=== PATIENT | male | born 1990 | race Caucasian/White ===

== ENCOUNTER 2019-02-16 15:44 | Emergency (ER) | payer OTHER, SELFPAY ==
[2019-02-16 16:43] LABS: Urine Blood NEGATIVE (NEG); Urine Glucose NEGATIVE (NEG); Urine Protein NEGATIVE (NEG); Urine Specific Gravity <1.005 (1.005-1.030)
[2019-02-16] MEDS ORDERED: ZIPRASIDONE MESYLA 20 MG/VIAL IM ONE (16:47)
[2019-02-16] MEDS ORDERED: WATER FOR INJ,STERILE 10 ML ONE (16:48)
[2019-02-16 16:50] LABS: Absolute Lymphocytes (CBC) 1.2 K/uL (0.7-4.9); Basophils % 0.5 % (0-1.3); Lymphocytes % 13.5 % (15.3-44.8); MPV 9.7 fL (7.6-11.3); RBC Red Blood Cell Count 5.31 M/uL (4.33-5.43)
[2019-02-16 16:52] LABS: Protime INR 1.12
[2019-02-16 16:56] LABS: Barbiturates NEGATIVE (NEGATIVE); Benzodiazepines NEGATIVE (NEGATIVE); Cocaine NEGATIVE (NEGATIVE); METHAMPHETAM NEGATIVE (NEGATIVE); Methadone NEGATIVE (NEGATIVE); Opiates NEGATIVE (NEGATIVE); Phencyclidine NEGATIVE (NEGATIVE); THC Cannibis NEGATIVE (NEGATIVE)
[2019-02-16 17:11] LABS: ALT/SGPT 49 U/L (12-78); AST/SGOT 55 U/L (15-37); Albumin 4.8 g/dL (3.4-5.0); Alkaline Phosphatase 90 U/L (45-117); BUN Blood Urea Nitrogen 9 mg/dL (7-18); Bicarbonate 31 mmol/L (21-32); Bilirubin Direct 0.1 mg/dL (0-0.2); Bilirubin Total 0.5 mg/dL (0.2-1.0); Glucose Level 79 mg/dL (74-106); Potassium 3.9 mmol/L (3.5-5.1); Protein, Total 8.8 g/dL (6.4-8.2); Sodium Level 138 mmol/L (136-145)
[2019-02-16 17:17] LABS: Lithium 0.6 mmol/L (0.6-1.2); Salicylates Level 8.5 mg/dL (2.8-20)
--- NOTE | 2019-02-16 22:17 | ER ---
Nurse's Notes [facility] Name: Shayan Villa Age: 28 yrs Sex: Male : 1990 Arrival Date: 02/16/2019 Time: 15:46 Bed 25 Private MD: Diagnosis: Schizophrenia;Auditory hallucinations Presentation: 02/16 16:00 Presenting complaint: Patient states: I have schizophrenia and just got out of [address] yesterday. I have not been able to sleep for the last week and I am hearing voices that are telling my I will be in eternal pain and suffering, that lead me to want to hurt myself but I never would, pt denies having plan. States he has a bad SINGH and feels like it is going to explode. Transition of care: patient was not received from another setting of care. Onset of symptoms was February 16, 2019. Risk Assessment: Do you want to hurt yourself or someone else? Patient reports no desire to harm self or others. Initial Sepsis Screen: Does the patient meet any 2 criteria? No. Patient's initial sepsis screen is negative. Does the patient have a suspected source of infection? No. Patient's initial sepsis screen is negative. Care prior to arrival: None. 16:00 Method Of Arrival: Ambulatory la1 16:00 Acuity: ABBI 2 la1 Historical: - Allergies: 16:02 No Known Allergies; la1 - PMHx: 16:02 Schizophrenia; la1 - Immunization history:: Adult Immunizations up to date. - Social history:: Smoking status: Patient/guardian denies using tobacco. - Ebola Screening: : No symptoms or risks identified at this time. Screenin:20 Abuse screen: Denies threats or abuse. Denies injuries from another. Nutritional mg2 screening: No deficits noted. Tuberculosis screening: No symptoms or risk factors identified. Fall Risk IV access (20 points). Assessment: 16:05 General: Appears in no apparent distress. comfortable, Behavior is calm, cooperative. mg2 16:05 Pain: Complains of pain in head Pain does not radiate. Pain currently is 5 out of 10 on mg2 a pain scale. Quality of pain is described as aching, Pain began gradually, Is intermittent. Neuro: Level of Consciousness is awake, alert, obeys commands, Oriented to person, place, time, situation, Reports headache. Cardiovascular: Capillary refill < 3 seconds Patient's skin is warm and dry. Respiratory: Airway is patent Respiratory effort is even, unlabored, Respiratory pattern is regular, symmetrical. GI: No signs and/or symptoms were reported involving the gastrointestinal system. : No signs and/or symptoms were reported regarding the genitourinary system. EENT: No signs and/or symptoms were reported regarding the EENT system. Derm: Skin is intact, is healthy with good turgor, Skin is pink, warm \T\ dry. normal. Musculoskeletal: Circulation, motion, and sensation intact. Capillary refill < 3 seconds. 17:00 Reassessment: Patient appears in no apparent distress at this time. sitter at bedside. [facility] [place] 18:00 Reassessment: Patient appears in no apparent distress at this time. Patient and/or mg2 family updated on plan of care and expected duration. Pain level reassessed. Patient is alert, oriented x 3, equal unlabored respirations, skin warm/dry/pink. 19:10 Reassessment: Patient appears in no apparent distress at this time. Patient and/or mg2 family updated on plan of care and expected duration. Pain level reassessed. Patient is alert, oriented x 3, equal unlabored respirations, skin warm/dry/pink. 20:30 Reassessment: Patient appears in no apparent distress at this time. sitter at bedside. [facility] [place] 22:43 Reassessment: nurse to nurse report called to JHOANA Garcia from [place] [id number] facility. patient informed about the plan and agreed to it. patient's belonging gave back to the him by the security. 23:54 Reassessment: Patient is alert, oriented x 3, equal unlabored respirations, skin bb warm/dry/pink. EMS at bedside for transport to [facility]. Pt is cooperative, family at bedside, sitter with patient. Psych: 16:10 Objective: Patient is cooperative, Speech is normal, Affect is appropriate, patient mg2 states hearing voices telling him that they will kill him. 17:19 Subjective:. Interventions: Removed personal items and placed in bag. Patient placed [place] [facility] [place] gown. Urine collected and sent for urine drug test. Belonging list filled out. Safety Checks: Personal items have been removed. Door is open. Visitors are present. Commitment: Patient will be a voluntary commitment. Vital Signs: 16:02 BP 117 / 88; Pulse 121; Resp 16; Temp 98.7; Pulse Ox 100% on R/A; Weight 63.5 kg; la1 Height 5 ft. 10 in. (177.80 cm); 20:00 BP 96 / 81; Pulse 97; Resp 16; Temp 97.6; Pulse Ox 99% ; vo1 22:59 BP 116 / 77; Pulse 94; Resp 16; Temp 97.7; Pulse Ox 100% ; vo1 16:02 Body Mass Index 20.09 (63.50 kg, 177.80 cm) la1 ED Course: 08:15 Safety checks: Items removed: yes. Door open/sign placed on door: yes. Family/friend vo1 present: no. Sitter present: Yes. 14:00 Safety checks: Items removed: yes. Door open/sign placed on door: yes. Family/friend mh5 present: no. Sitter present: Yes. 15:46 Patient arrived in ED. as 16:01 Triage completed. la1 16:02 Arm band placed on left wrist. la1 16:04 Barrie Green, JHOANA is Primary Nurse. mg2 16:15 Mary Patel FNP-C is PHCP. snw 16:15 Safety checks: Items removed: yes. Door open/sign placed on door: yes. Family/friend mh5 present: yes. Family/friends encouraged to stay with patient. Sitter present: Yes. 16:16 Norbert Almodovar MD is Attending Physician. snw 16:19 No provider procedures requiring assistance completed. Inserted saline lock: 20 gauge mg2 in left antecubital area, using aseptic technique. Blood collected. Patient maintains SpO2 saturation greater than 95% on room air. 16:23 EKG done, by product safety technician. reviewed by Mary LOPEZ. sm3 16:26 Patient has correct armband on for positive identification. Placed in gown. Bed in low mh5 position. Adult w/ patient. Warm blanket given. 16:30 Safety checks: Items removed: yes. Door open/sign placed on door: yes. Family/friend mh5 present: yes. Family/friends encouraged to stay with patient. Sitter present: Yes. 16:45 Safety checks: Items removed: yes. Door open/sign placed on door: yes. Family/friend mh5 present: yes. Family/friends encouraged to stay with patient. Sitter present: Yes. 17:00 Safety checks: Items removed: yes. Door open/sign placed on door: yes. Family/friend mh5 present: yes. Family/friends encouraged to stay with patient. Sitter present: Yes. Diet: Patient given a regular meal tray. 17:15 Safety checks: Items removed: yes. Door open/sign placed on door: yes. Family/friend mh5 present: yes. Family/friends encouraged to stay with patient. Sitter present: Yes. 17:30 Safety checks: Items removed: yes. Door open/sign placed on door: yes. Family/friend mh5 present: yes. Family/friends encouraged to stay with patient. Sitter present: Yes. 17:45 Safety checks: Items removed: yes. Door open/sign placed on door: yes. Family/friend mh5 present: yes. Family/friends encouraged to stay with patient. Sitter present: Yes. 18:00 Safety checks: Items removed: yes. Door open/sign placed on door: yes. Family/friend mh5 present: no. Sitter present: Yes. 18:15 Safety checks: Items removed: yes. Door open/sign placed on door: yes. Family/friend mh5 present: no. Sitter present: Yes. 18:30 Safety checks: Items removed: yes. Door open/sign placed on door: yes. Family/friend mh5 present: no. Sitter present: Yes. 18:45 Safety checks: Items removed: yes. Door open/sign placed on door: yes. Family/friend mh5 present: no. Sitter present: Yes. 19:00 Safety checks: Items removed: yes. Door open/sign placed on door: yes. Family/friend mh5 present: no. Sitter present: Yes. 19:15 Safety checks: Items removed: yes. Door open/sign placed on door: yes. Family/friend vo1 present: no. Sitter present: Yes. 19:30 Safety checks: Items removed: yes. Door open/sign placed on door: yes. Family/friend vo1 present: no. Sitter present: Yes. 19:45 Safety checks: Items removed: yes. Door open/sign placed on door: yes. Family/friend vo1 present: no. Sitter present: Yes. 20:00 Safety checks: Items removed: yes. Door open/sign placed on door: yes. Family/friend vo1 present: no. Sitter present: Yes. 20:15 Safety checks: Items removed: yes. Door open/sign placed on door: yes. Family/friend vo1 present: no. Sitter present: Yes. 20:30 Safety checks: Items removed: yes. Door open/sign placed on door: yes. Family/friend vo1 present: no. Sitter present: Yes. 20:45 Safety checks: Items removed: yes. Door open/sign placed on door: yes. Sitter present: vo1 Yes. 21:00 Safety checks: Items removed: yes. Door open/sign placed on door: yes. Family/friend vo1 present: no. Sitter present: Yes. 21:15 Safety checks: Items removed: yes. Door open/sign placed on door: yes. Family/friend vo1 present: no. Sitter present: Yes. 21:30 Safety checks: Items removed: yes. Door open/sign placed on door: yes. Family/friend vo1 present: no. Sitter present: Yes. 21:45 Safety checks: Items removed: yes. Door open/sign placed on door: yes. Family/friend vo1 present: no. Sitter present: Yes. 22:00 Safety checks: Items removed: yes. Door open/sign placed on door: yes. Family/friend vo1 present: no. Sitter present: Yes. 22:15 Safety checks: Items removed: yes. Door open/sign placed on door: yes. Family/friend vo1 present: no. Sitter present: Yes. 22:30 Safety checks: Items removed: yes. Family/friend present: no. Sitter present: Yes. vo1 22:45 Safety checks: Items removed: yes. Door open/sign placed on door: yes. Family/friend vo1 present: no. Sitter present: Yes. 22:45 IV discontinued, intact, bleeding controlled, No redness/swelling at site. Pressure mg2 dressing applied. 23:00 Safety checks: Items removed: yes. Door open/sign placed on door: yes. Family/friend vo1 present: no. Sitter present: Yes. 23:15 Safety checks: Items removed: yes. Door open/sign placed on door: yes. Family/friend vo1 present: yes. Sitter present: Yes. 23:30 Safety checks: Items removed: yes. Door open/sign placed on door: yes. Family/friend vo1 present: yes. Sitter present: Yes. 23:45 Safety checks: Items removed: yes. Door open/sign placed on door: yes. Family/friend vo1 present: yes. Sitter present: Yes. 23:59 Safety checks: Items removed: yes. Door open/sign placed on door: yes. Family/friend vo1 present: yes. Sitter present: Yes. Administered Medications: 16:53 Drug: Geodon 20 mg Route: IM; Site: right gluteus; mg2 18:00 Follow up: Response: No adverse reaction; Marked relief of symptoms mg2 Outcome: 22:16 ER care complete, transfer ordered by . jerrica 23:55 Transferred by ground EMS to other acute care facility: [facility].. tr5 23:55 Condition: stable 23:57 Transferred by ground EMS Transfer form completed. bb 23:57 Condition: stable 23:57 Instructed on the need for transfer. 02/17 00:02 Patient left the ED. bb Signatures: Mary Patel, HOMICIDE INVESTIGATOR-C HOMICIDE INVESTIGATOR-Csnw Luann Yarbrough Brenda RN RN bb Rashaun George RN RN ar1 Sabina Yarbrough 5 Charleen Hsu 1 Barrie Green RN RN mg2 Gianna Bhatt3 Ronald Bell RN RN tr5 Corrections: (The following items were deleted from the chart) 02/16 21:57 17:00 Reassessment: Patient appears in no apparent distress at this time. Patient mg2 and/or family updated on plan of care and expected duration. Pain level reassessed. Patient is alert, oriented x 3, equal unlabored respirations, skin warm/dry/pink. sitter at bedside. mg2 21:59 20:45 Safety checks: Items removed: yes. Door open/sign placed on door: yes. Sitter vo1 present: Yes. vo1 22:45 21:56 Reassessment: mg2 mg2
--- NOTE | 2019-02-16 22:17 | EDPHYS ---
Physician Documentation [facility] Name: Shayan Villa Age: 28 yrs Sex: Male : 1990 Arrival Date: 02/16/2019 Time: 15:46 Bed 25 Private MD: ED Physician Norbert Almodovar HPI: 02/16 16:50 This 28 yrs old Male presents to ER via Ambulatory with complaints of Unable snw to Sleep/Hearing Voices, Congestion, Headache. 16:50 Associated signs and symptoms: Pertinent positives: headache, congestion, hearing snw voices, fearful. Modifying factors: the patient symptoms are aggravated by voices. The patient has experienced similar episodes in the past. as noted. Started Hydroxydine 25mg TID, White Shield 900mg q hs, Risperidone 4mg po BID, Levothyroxine 50mcg q am, Ferrous Sulfate 325mg po at noon, Diphenhydramine 50mg BID. Historical: - Allergies: 16:02 No Known Allergies; la1 - PMHx: 16:02 Schizophrenia; la1 - Immunization history:: Adult Immunizations up to date. - Social history:: Smoking status: Patient/guardian denies using tobacco. - Ebola Screening: : No symptoms or risks identified at this time. ROS: 16:49 Eyes: Negative for injury, pain, redness, and discharge, ENT: Negative for injury, snw pain, and discharge, Neck: Negative for injury, pain, and swelling, Cardiovascular: Negative for chest pain, palpitations, and edema, Respiratory: Negative for shortness of breath, cough, wheezing, and pleuritic chest pain, Abdomen/GI: Negative for abdominal pain, nausea, vomiting, diarrhea, and constipation, Back: Negative for injury and pain, : Negative for injury, bleeding, discharge, and swelling, MS/Extremity: Negative for injury and deformity, Skin: Negative for injury, rash, and discoloration, Neuro: Negative for headache, weakness, numbness, tingling, and seizure. 16:49 Constitutional: Positive for hearing voices. 16:49 Psych: Positive for auditory hallucinations, insomnia, just dc'd from [facility] yesterday. Exam: 16:42 Constitutional: This is a well developed, well nourished patient who is awake, alert, snw and in no acute distress. Head/Face: Normocephalic, atraumatic. Eyes: Pupils equal round and reactive to light, extra-ocular motions intact. Lids and lashes normal. Conjunctiva and sclera are non-icteric and not injected. Cornea within normal limits. Periorbital areas with no swelling, redness, or edema. ENT: Nares patent. No nasal discharge, no septal abnormalities noted. Tympanic membranes are normal and external auditory canals are clear. Oropharynx with no redness, swelling, or masses, exudates, or evidence of obstruction, uvula midline. Mucous membranes moist. Neck: Trachea midline, no thyromegaly or masses palpated, and no cervical lymphadenopathy. Supple, full range of motion without nuchal rigidity, or vertebral point tenderness. No Meningismus. Chest/axilla: Normal chest wall appearance and motion. Nontender with no deformity. No lesions are appreciated. Cardiovascular: Tachycardia rate and rhythm with a normal S1 and S2. No gallops, murmurs, or rubs. Normal PMI, no JVD. No pulse deficits. Respiratory: Lungs have equal breath sounds bilaterally, clear to auscultation and percussion. No rales, rhonchi or wheezes noted. No increased work of breathing, no retractions or nasal flaring. Abdomen/GI: Soft, non-tender, with normal bowel sounds. No distension or tympany. No guarding or rebound. No evidence of tenderness throughout. Back: No spinal tenderness. No costovertebral tenderness. Full range of motion. Skin: Warm, dry with normal turgor. Normal color with no rashes, no lesions, and no evidence of cellulitis. MS/ Extremity: Pulses equal, no cyanosis. Neurovascular intact. Full, normal range of motion. Neuro: Awake and alert, GCS 15, oriented to person, place, time, and situation. Cranial nerves II-XII grossly intact. Motor strength 5/5 in all extremities. Sensory grossly intact. Cerebellar exam normal. Normal gait. 16:42 Psych: Behavior/mood is cooperative, anxious, Affect is calm, Oriented to person, place, time, pt states the voices are telling him they are going to hurt him. In speaking with him regarding transfer to a psych facility he states he does not want to go to a facility, he just wants to sleep and then try to stay home. Vital Signs: 16:02 BP 117 / 88; Pulse 121; Resp 16; Temp 98.7; Pulse Ox 100% on R/A; Weight 63.5 kg; la1 Height 5 ft. 10 in. (177.80 cm); 20:00 BP 96 / 81; Pulse 97; Resp 16; Temp 97.6; Pulse Ox 99% ; vo1 22:59 BP 116 / 77; Pulse 94; Resp 16; Temp 97.7; Pulse Ox 100% ; vo1 16:02 Body Mass Index 20.09 (63.50 kg, 177.80 cm) la1 MDM: 16:16 Patient medically screened. snw 18:48 Data reviewed: vital signs, nurses notes, lab test result(s), EKG. Data interpreted: snw electronic device monitor: Pulse oximetry: on room air is 100 %. Interpretation: normal. Counseling: I had a detailed discussion with the patient and/or guardian regarding: the historical points, exam findings, and any diagnostic results supporting the discharge/admit diagnosis, the need to transfer to another facility, [facility] does not immediately have the required specialist. Response to treatment: sleeping in no distress. 02/16 16:31 Order name: Acetaminophen; Complete Time: 17:25 mg2 02/16 16:31 Order name: Basic Metabolic Panel; Complete Time: 17:25 mg2 02/16 16:31 Order name: CBC with Diff; Complete Time: 16:54 mg2 02/16 16:31 Order name: ETOH Level; Complete Time: 17:25 mg2 02/16 16:31 Order name: Hepatic Function; Complete Time: 17:25 mg2 02/16 16:31 Order name: PT-INR; Complete Time: 16:55 mg2 02/16 16:29 Order name: Diet Regular; Complete Time: 16:30 mh5 02/16 16:31 Order name: Ptt, Activated; Complete Time: 16:55 mg2 02/16 16:31 Order name: Salicylate; Complete Time: 17:21 mg2 02/16 16:31 Order name: Urine Drug Screen; Complete Time: 16:57 mg2 02/16 16:31 Order name: EKG; Complete Time: 16:32 mg2 02/16 16:31 Order name: White Shield; Complete Time: 17:21 mg2 02/16 16:40 Order name: Urine Dipstick--Ancillary (enter results); Complete Time: 16:53 ms 02/16 16:31 Order name: EKG - Nurse/Tech; Complete Time: 16:54 mg2 02/16 16:31 Order name: IV Saline Lock; Complete Time: 16:54 mg2 02/16 16:31 Order name: Labs collected and sent; Complete Time: 16:54 mg2 02/16 16:31 Order name: Urine Dipstick-Ancillary (obtain specimen); Complete Time: 16:54 mg2 Administered Medications: 16:53 Drug: Geodon 20 mg Route: IM; Site: right gluteus; mg2 18:00 Follow up: Response: No adverse reaction; Marked relief of symptoms mg2 Disposition: 02/17 07:13 Co-signature as Attending Physician, Norbert Almodovar MD. rn Disposition: 02/16/19 22:16 Transfer ordered to Psych Facility. Diagnosis are Schizophrenia, Auditory hallucinations. - Reason for transfer: Specialty. - Accepting physician is Dr. Burk. - Condition is Stable. - Problem is an acute exacerbation. - Symptoms have worsened. Signatures: Dispatcher [employer] EDFL Mary Patel, JODIE-C RECRUITING TEAM LEAD-Csnw Brianna Sanz, RN RN bb Norbert Almodovar MD MD rn Attema, Lee, RN RN la1 Barrie Green RN RN mg2 Corrections: (The following items were deleted from the chart) 00:02 02/16 22:16 02/16/2019 22:16 Transfer ordered to Psych Facility. Diagnosis is bb Schizophrenia; Auditory hallucinations. Reason for transfer: Specialty. Accepting physician is Dr. Burk. Condition is Stable. Problem is an acute exacerbation. Symptoms have worsened. snw
[2019-02-17 00:27] VITALS: BP 116/77; TEMP 97.7; O2SAT 100
--- NOTE | 2019-02-17 07:03 | EKG ---
Test Date: 2019-02-16 Test Time: 16:17:34 Director Plans: JASWINDER MEASUREMENT RESULTS: Intervals: Rate: 110 NC: 140 QRSD: 80 QT: 328 QTc: 443 Shaw: P: 76 NC: 140 QRS: 71 T: 78 INTERPRETIVE STATEMENTS: Sinus tachycardia Otherwise normal ECG No previous ECG available for comparison Electronically Signed On 02-17-19 07:02:39 CDT by Roshan Plata
== END 2019-02-17 00:02 ==
LOC: ER 15:44
DX: F20.9 Schizophrenia, unspecified (principal)
CPT/HCPCS: 36415; 80048; 80076; 80178; 80307; 80320; 80329; 81003; 85025; 85610; 85730; 93005; 96372; 99285; J3486

== ENCOUNTER 2020-09-08 15:42 | Emergency (ER) | payer SELFPAY ==
[2020-09-08 16:04] LABS: Urine Blood Trace-lysed (Negative); Urine Glucose Negative (Negative); Urine Protein Negative (Negative)
[2020-09-08] MEDS ORDERED: NA CHLORIDE 0.9% 1,000 ML ONE ×3 (16:11→19:33)
[2020-09-08] MEDS ORDERED: LORazepam 2 MG/ML VIAL ONE (16:12)
[2020-09-08 16:24] LABS: Barbiturates NEGATIVE (NEGATIVE); Benzodiazepines NEGATIVE (NEGATIVE); Cocaine NEGATIVE (NEGATIVE); METHAMPHETAM NEGATIVE (NEGATIVE); Methadone NEGATIVE (NEGATIVE); Opiates NEGATIVE (NEGATIVE); Phencyclidine NEGATIVE (NEGATIVE); THC Cannibis NEGATIVE (NEGATIVE)
--- NOTE | 2020-09-08 16:32 | RAD REPORT ---
EXAM DESCRIPTION: CT - Head Brain Wo Cont - 09/08/2020 4:14 pm CLINICAL HISTORY: SEIZURE Headache, drowsiness COMPARISON: No comparisons TECHNIQUE: All CT scans are performed using dose optimization technique as appropriate and may inclu de automated exposure control or mA/KV adjustment according to patient size. FINDINGS: No intracranial hemorrhage, hydrocephalus or extra-axial fluid collection.No areas of brai n edema or evidence of midline shift. The paranasal sinuses and mastoids are clear. The calvarium is intact. IMPRESSION: No acute intracranial abnormality.
[2020-09-08 16:33] LABS: ALT/SGPT 31 U/L (12-78); AST/SGOT 15 U/L (15-37); Absolute Lymphocytes (CBC) 1.3 K/uL (0.7-4.9); Albumin 4.9 g/dL (3.4-5.0); Alkaline Phosphatase 74 U/L (45-117); BUN Blood Urea Nitrogen 5 mg/dL (7-18); Basophils % 0.6 % (0-1.3); Bicarbonate 17 mmol/L (21-32); Bilirubin Direct 0.4 mg/dL (0-0.2); Bilirubin Total 1.3 mg/dL (0.2-1.0); Glucose Level 93 mg/dL (74-106); Hematocrit 45.7 % (39.6-49.0); MPV 10.6 fL (7.6-11.3); Potassium 3.1 mmol/L (3.5-5.1); Protein, Total 8.3 g/dL (6.4-8.2); Protime INR 1.22; RBC Red Blood Cell Count 4.98 M/uL (4.33-5.43); Sodium Level 134 mmol/L (136-145)
[2020-09-08] MEDS ORDERED: POTASSIUM 25 MEQ EFFERV TAB ONE (19:33)
--- NOTE | 2020-09-08 19:41 | EDPHYS ---
Physician Documentation [facility] Name: Shayan Villa Age: 30 yrs Sex: Male : 1990 Arrival Date: 09/08/2020 Time: 15:47 Bed 14 Private MD: ED Physician Dionisio Duran HPI: 09/08 15:55 This 30 yrs old Male presents to ER via EMS with complaints of Seizure. cp 15:55 The patient presents after having a single isolated seizure, that lasted an unknown cp period of time. 15:55 Character of seizure(s): Motor activity: generalized, shaking all over, Incontinence: cp none. 15:55 Seizure onset: just prior to arrival. Context: Contributing factors: unknown. Seizure cp Hx: the patient has no previous seizure history. Associated injury: The patient did not suffer any apparent associated injury. EMS care: none. Current symptoms: awake, not talking and no signs of respiratory distress. Historical: - PMHx: 16:03 Schizophrenia; tr6 - Immunization history:: Adult Immunizations unknown. - Social history:: Smoking status: unknown Patient uses street drugs, gamma hydroxy butyrate, LSD, marijuana. ROS: 16:00 Constitutional: Negative for body aches, chills, fever, poor PO intake. cp 16:00 Eyes: Negative for injury, pain, redness, and discharge. cp 16:00 Cardiovascular: Negative for chest pain. cp 16:00 Abdomen/GI: Negative for abdominal pain, nausea, vomiting, and diarrhea. cp 16:00 Neuro: Positive for history of seizure, Negative for headache. 16:00 All other systems are negative. Exam: 16:05 Constitutional: The patient appears in no acute distress, alert, awake, non-toxic, well cp developed, well nourished. 16:05 Head/Face: Normocephalic, atraumatic. cp 16:05 Eyes: Periorbital structures: appear normal, Pupils: equal, round, and reactive to light and accomodation, Extraocular movements: intact throughout, Conjunctiva: normal, no exudate, no injection, Sclera: no appreciated abnormality, Lids and lashes: appear normal, bilaterally. 16:05 ENT: External ear(s): are unremarkable, Nose: is normal, Mouth: Lips: moist, Oral mucosa: moist, Posterior pharynx: Airway: no evidence of obstruction, patent. 16:05 Neck: C-spine: vertebral tenderness, is not appreciated, crepitus, is not appreciated, ROM/movement: is normal, is supple, without pain, no range of motions limitations. 16:05 Chest/axilla: Inspection: normal, Palpation: is normal, no crepitus, no tenderness. 16:05 Cardiovascular: Rate: tachycardic, Rhythm: regular. 16:05 Respiratory: the patient does not display signs of respiratory distress, Respirations: normal, no use of accessory muscles, no retractions, labored breathing, is not present, Breath sounds: are clear throughout, no decreased breath sounds. 16:05 Abdomen/GI: Inspection: abdomen appears normal, Palpation: abdomen is soft and non-tender, in all quadrants. 16:05 Neuro: Orientation: to person, situation, Mentation: able to follow commands, slow to respond, Motor: moves all fours, strength is normal. 17:22 ECG was reviewed by the Attending Physician. Vital Signs: 15:48 BP 122 / 77; Pulse 150; Resp 18; Pulse Ox 98% on R/A; tr6 16:42 BP 114 / 70; Pulse 108; Resp 18; Pulse Ox 100% on R/A; tr6 17:23 BP 152 / 101; Pulse 121; Resp 18; Pulse Ox 100% on R/A; tr6 18:52 BP 121 / 89; Pulse 108; Resp 18; Pulse Ox 100% on R/A; tr6 20:19 BP 114 / 75; Pulse 84; Resp 16; Pulse Ox 100% on R/A; ak2 MDM: 15:48 Patient medically screened. 16:00 Differential diagnosis: drug overdose, cardiac arrhythmia, seizure. 19:40 Data reviewed: vital signs, nurses notes, lab test result(s), EKG, radiologic studies, cp CT scan. 19:40 Test interpretation: by ED physician or midlevel provider: ECG. 19:40 Counseling: I had a detailed discussion with the patient and/or guardian regarding: the cp historical points, exam findings, and any diagnostic results supporting the discharge/admit diagnosis, lab results, radiology results, to return to the emergency department if symptoms worsen or persist or if there are any questions or concerns that arise at home. 19:40 Response to treatment: the patient's symptoms have markedly improved after treatment, cp VSS. No seizure activity observed while monitoring patient. Patient reports increased anxiety recently, denies SI, hallucinations. Will discharge to home for continued monitoring. 09/08 15:50 Order name: Acetaminophen; Complete Time: 16:53 cp 09/08 15:50 Order name: Basic Metabolic Panel; Complete Time: 16:53 cp 09/08 16:53 Interpretation: Normal except: NA 134; K 3.1; CL 97; CO2 17; BUN 5; GFR 74. cp 09/08 15:50 Order name: CBC with Diff; Complete Time: 16:53 cp 09/08 15:50 Order name: ETOH Level; Complete Time: 16:53 cp 09/08 15:50 Order name: Hepatic Function; Complete Time: 16:53 cp 09/08 15:50 Order name: PT-INR; Complete Time: 16:53 cp 09/08 15:49 Order name: CT Head Brain wo Cont; Complete Time: 16:53 cp 09/08 16:54 Interpretation: Report reviewed. 09/08 15:50 Order name: Ptt, Activated; Complete Time: 16:53 cp 09/08 15:50 Order name: Salicylate; Complete Time: 16:53 cp 09/08 15:50 Order name: Urine Drug Screen; Complete Time: 16:53 cp 09/08 16:04 Order name: Urine Dipstick-Ancillary; Complete Time: 16:53 EDMS 09/08 15:50 Order name: EKG; Complete Time: 15:51 cp 09/08 15:50 Order name: EKG - Nurse/Tech; Complete Time: 17:44 cp 09/08 15:50 Order name: IV Saline Lock; Complete Time: 16:05 cp 09/08 15:50 Order name: Labs collected and sent; Complete Time: 16:05 cp 09/08 15:50 Order name: Suicide Screening ([place]); Complete Time: 16:05 cp 09/08 15:50 Order name: Urine Dipstick-Ancillary (obtain specimen); Complete Time: 16:05 cp EC:22 Rate is 115 beats/min. Rhythm is regular. ID interval is normal. QRS interval is cp normal. QT interval is normal. Interpreted by me. Reviewed by me. Administered Medications: 16:04 Drug: Ativan (LORazepam) 1 mg Route: IVP; Site: left antecubital; tr6 16:04 Drug: NS 0.9% 1000 ml Route: IV; Rate: 1 bolus; Site: left antecubital; tr6 17:43 Drug: NS 0.9% 1000 ml Route: IV; Rate: 1 bolus; Site: right antecubital; tr6 19:14 Drug: Potassium Effervescent Tablet 50 mEq Route: PO; ak2 19:15 Drug: NS 0.9% 1000 ml Route: IV; Rate: 1 bolus; Site: left antecubital; ak2 Disposition: 09/09 09:49 Co-signature as Attending Physician, Dionisio Duran MD I agree with the assessment and shreyas plan of care. Disposition: 09/08/20 19:40 Discharged to Home. Impression: Seizure. - Condition is Stable. - Discharge Instructions: Seizure, Adult. - Prescriptions for Vistaril 25 mg Oral capsule - take 1 capsule by ORAL route 4 times per day As needed; 30 capsule. - Medication Reconciliation Form, Thank You Letter, Antibiotic Education, Prescription Opioid Use form. - Follow up: Johnnie Tovar MD; When: 2 - 3 days; Reason: Recheck today's complaints. - Problem is new. - Symptoms are resolved. Signatures: Dispatcher [employer] EDTX Dionisio Duran MD MD cha Williams, Irene, RN RN iw Dionisio Wellington PA PA cp Ramnanan, Tiffany, RN RN tr6 Chris Ralph2 Corrections: (The following items were deleted from the chart) 09/08 20:58 19:40 09/08/2020 19:40 Discharged to Home. Impression: Seizure. Condition is Stable. iw Forms are Medication Reconciliation Form, Thank You Letter, Antibiotic Education, Prescription Opioid Use. Follow up: Johnnie Tovar; When: 2 - 3 days; Reason: Recheck today's complaints. Problem is new. Symptoms are resolved. cp
--- NOTE | 2020-09-08 19:41 | ER ---
Nurse's Notes [facility] Name: Shayan Villa Age: 30 yrs Sex: Male : 1990 Arrival Date: 09/08/2020 Time: 15:47 Bed 14 Private MD: Diagnosis: Seizure Presentation: 09/08 15:48 Chief complaint: EMS states: new onset seizure. no known history of seizures. tr6 Coronavirus screen: At this time, unable to obtain information related to travel outside the [place] Ebola Screen: Patient negative for fever greater than or equal to 101.5 degrees Fahrenheit, and additional compatible Ebola Virus Disease symptoms Patient denies exposure to infectious person. Patient denies travel to an Ebola-affected area in the 21 days before illness onset. Initial Sepsis Screen: Does the patient meet any 2 criteria? No. Patient's initial sepsis screen is negative. Does the patient have a suspected source of infection? No. Patient's initial sepsis screen is negative. Risk Assessment: Do you want to hurt yourself or someone else? Patient reports no desire to harm self or others. Onset of symptoms was September 08, 2020. 15:48 Method Of Arrival: EMS: [facility] tr6 15:48 Acuity: ABBI 2 tr6 Triage Assessment: 15:50 General: Appears in no apparent distress. slender, Behavior is appropriate for age, tr6 flat, quiet. Pain: Denies pain. EENT: No deficits noted. Neuro: Level of Consciousness is awake, alert, obeys commands, Oriented to person, time, Refinery Pipeline Operator are equal bilaterally Moves all extremities. Speech is normal, Facial symmetry appears normal, Pupils are PERRLA, Intact. Cardiovascular: Denies chest pain, Heart tones S1 S2 Rhythm is sinus tachycardia. Respiratory: No deficits noted. GI: No deficits noted. : No deficits noted. Derm: No deficits noted. Musculoskeletal: No deficits noted. Historical: - PMHx: 16:03 Schizophrenia; tr6 - Immunization history:: Adult Immunizations unknown. - Social history:: Smoking status: unknown Patient uses street drugs, gamma hydroxy butyrate, LSD, marijuana. Screenin:52 Abuse screen: Denies threats or abuse. Denies injuries from another. Nutritional tr6 screening: No deficits noted. Tuberculosis screening: No symptoms or risk factors identified. Fall Risk Fall in past 12 months (25 points). Assessment: 16:03 Reassessment: view triage assessment. tr6 16:39 Reassessment: pt requires frequent reminding to keep on monitoring devices. tr6 17:01 Reassessment: pt removed his IV and is in hallway stating he needs to use the bathroom. tr6 urinal provided to pt. 18:51 Reassessment: mother at bedside. tr6 Vital Signs: 15:48 BP 122 / 77; Pulse 150; Resp 18; Pulse Ox 98% on R/A; tr6 16:42 BP 114 / 70; Pulse 108; Resp 18; Pulse Ox 100% on R/A; tr6 17:23 BP 152 / 101; Pulse 121; Resp 18; Pulse Ox 100% on R/A; tr6 18:52 BP 121 / 89; Pulse 108; Resp 18; Pulse Ox 100% on R/A; tr6 20:19 BP 114 / 75; Pulse 84; Resp 16; Pulse Ox 100% on R/A; ak2 ED Course: 15:47 Patient arrived in ED. tr6 15:47 Mariana Arreola, JHOANA is Primary Nurse. tr6 15:47 Dionisio Wellington PA is PHCP. cp 15:47 Dionisio Duran MD is Attending Physician. cp 15:50 Triage completed. tr6 16:09 Patient has correct armband on for positive identification. Bed in low position. Call mh5 light in reach. Side rails up X2. Seizure precautions initiated. Warm blanket given. exterior door installer on. Pulse ox on. NIBP on. 16:13 CT Head Brain wo Cont In Process Unspecified. EDMS 17:02 IV discontinued, IV removed by pt. tr6 17:22 Inserted saline lock: 20 gauge in right antecubital area, using aseptic technique. tr6 18:52 No provider procedures requiring assistance completed. tr6 19:39 Johnnie Tovar MD is Referral Physician. cp Administered Medications: 16:04 Drug: Ativan (LORazepam) 1 mg Route: IVP; Site: left antecubital; tr6 16:04 Drug: NS 0.9% 1000 ml Route: IV; Rate: 1 bolus; Site: left antecubital; tr6 17:43 Drug: NS 0.9% 1000 ml Route: IV; Rate: 1 bolus; Site: right antecubital; tr6 19:14 Drug: Potassium Effervescent Tablet 50 mEq Route: PO; ak2 19:15 Drug: NS 0.9% 1000 ml Route: IV; Rate: 1 bolus; Site: left antecubital; ak2 Outcome: 19:40 Discharge ordered by . keo 20:19 Discharged to home ambulatory. ak2 20:19 Condition: good 20:19 Discharge instructions given to patient, family, Prescriptions given X 1. 20:58 Patient left the ED. iw Signatures: Dispatcher [employer] Ignacia Dyson RN RN iw Dionisio Wellington PA PA cp Martinez, [facility] Mariana Arreola RN RN tr6 Chris Ralph ak2
[2020-09-08 21:48] VITALS: O2SAT 100
[2020-09-08 21:53] VITALS: BP 114/75
--- NOTE | 2020-09-09 11:33 | EKG ---
Test Date: 2020-09-08 Test Time: 17:15:06 Stem Cutter: LIZETH MEASUREMENT RESULTS: Intervals: Rate: 115 MO: 148 QRSD: 84 QT: 356 QTc: 492 [place]: P: 61 MO: 148 QRS: 60 T: 46 INTERPRETIVE STATEMENTS: Sinus tachycardia Otherwise normal ECG Compared to ECG 02/16/2019 16:17:34 No significant changes Electronically Signed On 09-09-20 11:31:09 CDT by Miguel Ellsworth
== END 2020-09-08 20:58 | disposition home or self-care (01) ==
LOC: ER 15:42
DX: R56.9 Unspecified convulsions (principal); F20.9 Schizophrenia, unspecified
CPT/HCPCS: 36415; 70450; 80048; 80076; 80307; 80320; 80329; 81003; 85025; 85610; 85730; 93005; 96374; 99284; J7030